=== PATIENT | male | born 1960 ===

== ENCOUNTER 2018-03-05 02:13 | Day surgery (SDC) | payer OTHER ==
[~2018-03-05] VITALS: Ht 182.9 cm; Wt 95.7 kg
[~2018-03-05 02:13] MED LIST: IBUP-136 PO; NO ROUTINE MEDS; VARE1TAB4 PO
[2018-03-05 07:20] VITALS: BP 147/105
[2018-03-05] MEDS ORDERED: NORMOSOL R SOLN(*) 1000 ML BAG 1,000 ML IV PRN (07:45)
[2018-03-05] MEDS ORDERED: LIDOCAINE/SOD BICARB 8.4% SYR ID ONE (07:45)
[2018-03-05 09:23] VITALS: BP 103/76
[2018-03-05 09:30] VITALS: BP 104/70
[2018-03-05 10:20] VITALS: BP 119/78
[2018-03-05 10:22] VITALS: BP 117/79
[2018-03-05] MEDS ORDERED: PROPOFOL EMUL(*) 10MG/ML 20 ML 60 ML ONE (12:53)
== END 2018-03-05 10:40 | disposition home or self-care (01) ==
LOC: OR 02:13
PROVIDERS: ATTEND Family Medicine
DX: Z12.11 Encounter for screening for malignant neoplasm of colon (principal); Z86.010 Personal history of colon polyps
CPT/HCPCS: 00812; 45378; J2704